=== PATIENT | female | born 1970 | race Caucasian/White ===

== ENCOUNTER 2017-10-26 13:02 | Inpatient (IN) | payer OTHER ==
[2017-10-26 13:44] LABS: ADD MAN DIFF? NO
[2017-10-26 13:47] LABS: BASOPHILS % 0.2 % (0.0-2.0); EOSINOPHILS # 0.1 10^3/ul (0.0-0.5); HEMATOCRIT 40.2 % (37.0-47.0); LYMPHOCYTES # 2.5 10^3/ul (0.8-2.9); LYMPHOCYTES % 28.2 % (15.0-51.0); MEAN CORPUSCULAR HEMOGLOBIN 25.5 pg (29.0-33.0); MEAN CORPUSCULAR HGB CONC 32.3 g/dl (32.0-37.0); MEAN CORPUSCULAR VOLUME 78.8 fl (82.0-101.0); MEAN PLATELET VOLUME 9.8 fl (7.4-10.4); MONOCYTE # 0.4 10^3/ul (0.3-0.9); MONOCYTES % 4.1 % (0.0-11.0); NEUTROPHIL # 5.9 10^3/ul (1.6-7.5); NEUTROPHILS % 66.2 % (39.0-77.0); PLATELET COUNT 393 10^3/UL (140-415); RED CELL DISTRIBUTION WIDTH 15.7 % (11.5-14.5)
[2017-10-26 13:47] LABS: WHITE BLOOD COUNT 8.9 10^3/ul (4.8-10.8)
[2017-10-26] MEDS ORDERED: ONDANSETRON 4 MG INJ IV ×2 (14:00→15:30)
[2017-10-26] MEDS ORDERED: ACETAMINOPHEN 325 MG TAB PO (14:00)
[2017-10-26 14:06] LABS: ANION GAP 18 (8-16); BLOOD UREA NITROGEN 12 mg/dl (7-20); CALCIUM 9.2 mg/dl (8.4-10.2); CARBON DIOXIDE 26 mmol/L (21-31); CHLORIDE 101 mmol/L (97-110); CREATININE 0.45 mg/dl (0.44-1.00); GLUCOSE 340 mg/dl (70-220); POTASSIUM 4.2 mmol/L (3.5-5.1); SODIUM 141 mmol/L (135-144)
[2017-10-26 14:16] LABS: INR 0.99; PROTIME 13.2 Sec (11.9-14.9)
[2017-10-26 14:20] LABS: TROPONIN-I < 0.012 ng/ml (0.00-0.12)
[2017-10-26 14:24] LABS: HEMOGLOBIN A1C 11.3 % (0-5.9)
[2017-10-26] MEDS: ASPIRIN 325 MG TAB PO (14:44)
[2017-10-26] MEDS ORDERED: GLUCOSE GEL 15 GRAM TUBE PO ×2 (15:30)
[2017-10-26] MEDS ORDERED: GLUCOSE GEL 15 GRAM TUBE BUCCAL (15:30)
[2017-10-26] MEDS ORDERED: DEXTROSE 50% 50 ML SYRINGE IV ×2 (15:30)
[2017-10-26] MEDS ORDERED: GLUCAGON 1 MG INJ IM (15:30)
[2017-10-26] MEDS: INSULIN ASPART [NOVOLOG] 3 ML PEN SC ×2 (16:26→18:00)
[2017-10-26] MEDS: SOD CHLORIDE 0.9% 1,000 ML IV (16:38)
[2017-10-26] MEDS ORDERED: INSULIN ASPART [NOVOLOG] 3 ML PEN SC (17:00)
[2017-10-26 21:09] LABS: ADD UMIC NO; UR ASCORBIC ACID NEGATIVE (NEGATIVE); UR BILIRUBIN (Dip) NEGATIVE (NEGATIVE); UR BLOOD (Dip) NEGATIVE (NEGATIVE); UR CLARITY CLEAR (CLEAR); UR COLOR YELLOW (YELLOW); UR GLUCOSE (Dip) 3+ mg/dL (NEGATIVE); UR KETONES (Dip) NEGATIVE (NEGATIVE); UR LEUKOCYTE ESTERASE (Dip) NEGATIVE Leu/ul (NEGATIVE); UR NITRITE (Dip) NEGATIVE (NEGATIVE); UR TOTAL PROTEIN (Dip) NEGATIVE (NEGATIVE); UR UROBILINOGEN (Dip) NEGATIVE (NEGATIVE)
[2017-10-26 21:58] LABS: AMPHETAMINE/METHAMPHETAMINE Negative (NEGATIVE); BARBITURATES Negative (NEGATIVE); BENZODIAZEPINES Negative (NEGATIVE); CANNABINOIDS Negative (NEGATIVE); COCAINE Negative (NEGATIVE); OPIATES Negative (NEGATIVE)
[2017-10-27] MEDS: INSULIN GLARGINE [LANtus] 3 ML PEN SC ×2 (00:34→21:12)
[2017-10-27] MEDS: INSULIN ASPART [NOVOLOG] 3 ML PEN SC ×6 (00:34→21:15)
[2017-10-27] MEDS: ACCU-CHEK XX (02:00)
[2017-10-27] MEDS: ACETAMINOPHEN 325 MG TAB PO ×4 (02:12→21:23)
[2017-10-27] MEDS: hydrALAzine 20 MG INJ IV (04:36)
[2017-10-27 06:49] LABS: ADD MAN DIFF? NO
[2017-10-27 06:52] LABS: BASOPHILS % 0.2 % (0.0-2.0); EOSINOPHILS # 0.1 10^3/ul (0.0-0.5); EOSINOPHILS % 1.3 % (0.0-7.0); HEMATOCRIT 36.6 % (37.0-47.0); HEMOGLOBIN 11.9 g/dl (12.0-16.0); LYMPHOCYTES # 2.6 10^3/ul (0.8-2.9); LYMPHOCYTES % 28.9 % (15.0-51.0); MEAN CORPUSCULAR HEMOGLOBIN 25.8 pg (29.0-33.0); MEAN CORPUSCULAR HGB CONC 32.5 g/dl (32.0-37.0); MEAN CORPUSCULAR VOLUME 79.2 fl (82.0-101.0); MEAN PLATELET VOLUME 9.9 fl (7.4-10.4); MONOCYTE # 0.4 10^3/ul (0.3-0.9); MONOCYTES % 4.2 % (0.0-11.0); NEUTROPHIL # 5.8 10^3/ul (1.6-7.5); NEUTROPHILS % 65.1 % (39.0-77.0); PLATELET COUNT 369 10^3/UL (140-415); RED BLOOD COUNT 4.62 10^6/ul (4.20-5.40)
[2017-10-27 06:52] LABS: WHITE BLOOD COUNT 8.9 10^3/ul (4.8-10.8)
[2017-10-27 07:27] LABS: ANION GAP 12 (8-16); BLOOD UREA NITROGEN 8 mg/dl (7-20); CALCIUM 8.3 mg/dl (8.4-10.2); CARBON DIOXIDE 25 mmol/L (21-31); CHLORIDE 106 mmol/L (97-110); GLUCOSE 188 mg/dl (70-220); POTASSIUM 3.8 mmol/L (3.5-5.1); SODIUM 139 mmol/L (135-144)
[2017-10-27] MEDS: SOD CHLORIDE 0.9% 1,000 ML IV (08:18)
[2017-10-27 08:26] LABS: HEMOGLOBIN A1C 10.7 % (0-5.9)
[2017-10-27] MEDS: ASPIRIN (EC) 81 MG TAB PO (14:28)
[2017-10-27 20:56] LABS: CHOLESTEROL 140 mg/dl (100-200)
[2017-10-27 20:56] LABS: CHOL/HDL RATIO 4.5 RATIO; HDL CHOLESTEROL 31 mg/dl (37-92); LDL CHOLESTEROL,CALCULATED 87 mg/dl; TRIGLYCERIDES 110 mg/dl (0-149)
[2017-10-28] MEDS: SOD CHLORIDE 0.9% 1,000 ML IV (01:36)
[2017-10-28] MEDS: ACCU-CHEK XX (02:00)
[2017-10-28] MEDS: ACETAMINOPHEN 325 MG TAB PO (07:49)
[2017-10-28] MEDS: ASPIRIN (EC) 81 MG TAB PO (08:20)
[2017-10-28 08:21] LABS: ADD MAN DIFF? NO
[2017-10-28] MEDS: INSULIN ASPART [NOVOLOG] 3 ML PEN SC ×7 (08:24→20:48)
[2017-10-28 08:25] LABS: WHITE BLOOD COUNT 9.7 10^3/ul (4.8-10.8)
[2017-10-28 08:25] LABS: BASOPHILS % 0.1 % (0.0-2.0); EOSINOPHILS # 0.1 10^3/ul (0.0-0.5); EOSINOPHILS % 1.2 % (0.0-7.0); HEMATOCRIT 36.9 % (37.0-47.0); LYMPHOCYTES # 2.5 10^3/ul (0.8-2.9); MEAN CORPUSCULAR HEMOGLOBIN 26.1 pg (29.0-33.0); MEAN CORPUSCULAR HGB CONC 32.5 g/dl (32.0-37.0); MEAN CORPUSCULAR VOLUME 80.4 fl (82.0-101.0); MEAN PLATELET VOLUME 10.2 fl (7.4-10.4); MONOCYTE # 0.5 10^3/ul (0.3-0.9); MONOCYTES % 5.2 % (0.0-11.0); NEUTROPHIL # 6.5 10^3/ul (1.6-7.5); NEUTROPHILS % 67.2 % (39.0-77.0); PLATELET COUNT 355 10^3/UL (140-415); RED BLOOD COUNT 4.59 10^6/ul (4.20-5.40); RED CELL DISTRIBUTION WIDTH 16.1 % (11.5-14.5)
[2017-10-28 08:49] LABS: ANION GAP 14 (8-16); BLOOD UREA NITROGEN 8 mg/dl (7-20); CALCIUM 8.5 mg/dl (8.4-10.2); CARBON DIOXIDE 25 mmol/L (21-31); CHLORIDE 106 mmol/L (97-110); CHOL/HDL RATIO 3.7 RATIO; CHOLESTEROL 126 mg/dl (100-200); CREATININE 0.41 mg/dl (0.44-1.00); GLUCOSE 178 mg/dl (70-220); HDL CHOLESTEROL 34 mg/dl (37-92); LDL CHOLESTEROL,CALCULATED 73 mg/dl; POTASSIUM 4.2 mmol/L (3.5-5.1); SODIUM 141 mmol/L (135-144); TRIGLYCERIDES 95 mg/dl (0-149)
[2017-10-28 19:53] LABS: RHEUMATOID FACTOR POSITIVE (NEGATIVE)
[2017-10-28 19:54] LABS: RHEUM FACTOR TITER 1:16
[2017-10-28] MEDS: hydrALAzine 20 MG INJ IV (20:39)
[2017-10-28] MEDS: INSULIN GLARGINE [LANtus] 3 ML PEN SC (20:48)
[2017-10-29] MEDS: ACETAMINOPHEN 325 MG TAB PO ×2 (00:14→12:15)
[2017-10-29] MEDS ORDERED: HYDROCODONE/APAP (5/325) TAB PO (00:30)
[2017-10-29] MEDS: ACCU-CHEK XX (02:40)
[2017-10-29 08:23] LABS: ADD MAN DIFF? NO
[2017-10-29 08:26] LABS: WHITE BLOOD COUNT 9.4 10^3/ul (4.8-10.8)
[2017-10-29 08:26] LABS: BASOPHILS % 0.2 % (0.0-2.0); EOSINOPHILS # 0.2 10^3/ul (0.0-0.5); EOSINOPHILS % 1.7 % (0.0-7.0); HEMATOCRIT 38.8 % (37.0-47.0); HEMOGLOBIN 12.5 g/dl (12.0-16.0); LYMPHOCYTES # 2.7 10^3/ul (0.8-2.9); LYMPHOCYTES % 28.4 % (15.0-51.0); MEAN CORPUSCULAR HEMOGLOBIN 25.9 pg (29.0-33.0); MEAN CORPUSCULAR HGB CONC 32.2 g/dl (32.0-37.0); MEAN CORPUSCULAR VOLUME 80.3 fl (82.0-101.0); MEAN PLATELET VOLUME 10.1 fl (7.4-10.4); MONOCYTE # 0.5 10^3/ul (0.3-0.9); MONOCYTES % 5.3 % (0.0-11.0); PLATELET COUNT 378 10^3/UL (140-415); RED BLOOD COUNT 4.83 10^6/ul (4.20-5.40); RED CELL DISTRIBUTION WIDTH 15.9 % (11.5-14.5)
[2017-10-29 08:48] LABS: ANION GAP 14 (8-16); BLOOD UREA NITROGEN 11 mg/dl (7-20); CALCIUM 9.2 mg/dl (8.4-10.2); CARBON DIOXIDE 25 mmol/L (21-31); CHLORIDE 104 mmol/L (97-110); CREATININE 0.41 mg/dl (0.44-1.00); GLUCOSE 163 mg/dl (70-220); SODIUM 139 mmol/L (135-144)
[2017-10-29] MEDS: ASPIRIN (EC) 81 MG TAB PO (08:54)
[2017-10-29] MEDS: INSULIN ASPART [NOVOLOG] 3 ML PEN SC ×4 (08:54→12:41)
[2017-10-29] MEDS ORDERED: ATORVASTATIN 80 MG TAB PO (21:00)
== END 2017-10-29 17:44 | DRG 65 ==
LOC: E/R 13:02 → TEL 13:49
DX: I63.9 Cerebral infarction, unspecified (principal); G81.91 Hemiplegia, unspecified affecting right dominant side; E11.65 Type 2 diabetes mellitus with hyperglycemia; M06.9 Rheumatoid arthritis, unspecified; Z91.14 Patient's other noncompliance with medication regimen; Z79.4 Long term (current) use of insulin
CPT/HCPCS: 36415; 70450; 70549; 70551; 71045; 80048; 80061; 80307; 81003; 82962; 83036; 84443; 84484; 85025; 85610; 85730; 86430; 86850; 86900; 86901; 92610; 93005; 97003; 97110; 97162; 97166; 97530; 99285-25

== ENCOUNTER 2017-10-29 18:01 | Inpatient (IN) | payer OTHER ==
[2017-10-29] MEDS ORDERED: GLUCAGON 1 MG INJ IM (19:30)
[2017-10-29] MEDS ORDERED: GLUCOSE GEL 15 GRAM TUBE BUCCAL (19:30)
[2017-10-29] MEDS ORDERED: DEXTROSE 50% 50 ML SYRINGE IV ×2 (19:30)
[2017-10-29] MEDS ORDERED: GLUCOSE GEL 15 GRAM TUBE PO ×2 (19:30)
[2017-10-29] MEDS: ACETAMINOPHEN 325 MG TAB PO (21:26)
[2017-10-29] MEDS: ATORVASTATIN 80 MG TAB PO (21:26)
[2017-10-29] MEDS: INSULIN GLARGINE [LANtus] 3 ML PEN SC (21:30)
[2017-10-29] MEDS: INSULIN ASPART [NOVOLOG] 3 ML PEN SC (21:31)
[2017-10-30] MEDS: ACCU-CHEK XX ×2 (02:00)
[2017-10-30] MEDS: HYDROCODONE/APAP (5/325) TAB PO ×2 (02:30→08:16)
[2017-10-30] MEDS ORDERED: MAGNESIUM HYDROXIDE 30ML CUP PO (04:00)
[2017-10-30] MEDS ORDERED: BISACODYL 10 MG SUPP PR (04:00)
[2017-10-30 07:16] LABS: ADD MAN DIFF? NO
[2017-10-30 07:21] LABS: BASOPHILS % 0.3 % (0.0-2.0); EOSINOPHILS # 0.2 10^3/ul (0.0-0.5); EOSINOPHILS % 2.7 % (0.0-7.0); HEMATOCRIT 39.7 % (37.0-47.0); HEMOGLOBIN 12.6 g/dl (12.0-16.0); LYMPHOCYTES # 3.1 10^3/ul (0.8-2.9); LYMPHOCYTES % 34.6 % (15.0-51.0); MEAN CORPUSCULAR HEMOGLOBIN 25.8 pg (29.0-33.0); MEAN CORPUSCULAR HGB CONC 31.7 g/dl (32.0-37.0); MEAN CORPUSCULAR VOLUME 81.2 fl (82.0-101.0); MEAN PLATELET VOLUME 9.9 fl (7.4-10.4); MONOCYTE # 0.5 10^3/ul (0.3-0.9); MONOCYTES % 5.8 % (0.0-11.0); NEUTROPHIL # 5.1 10^3/ul (1.6-7.5); NEUTROPHILS % 56.4 % (39.0-77.0); PLATELET COUNT 356 10^3/UL (140-415); RED BLOOD COUNT 4.89 10^6/ul (4.20-5.40); RED CELL DISTRIBUTION WIDTH 16.2 % (11.5-14.5)
[2017-10-30 07:44] LABS: ALANINE AMINOTRANSFERASE 42 IU/L (13-69); ALBUMIN 3.6 g/dl (3.3-4.9); ALKALINE PHOSPHATASE 138 IU/L (42-121); ANION GAP 15 (8-16); ASPARTATE AMINO TRANSFERASE 36 IU/L (15-46); BILIRUBIN,INDIRECT 0.3 mg/dl (0-1.1); BILIRUBIN,TOTAL 0.3 mg/dl (0.2-1.3); BLOOD UREA NITROGEN 13 mg/dl (7-20); CALCIUM 8.7 mg/dl (8.4-10.2); CARBON DIOXIDE 27 mmol/L (21-31); CHLORIDE 103 mmol/L (97-110); CREATININE 0.47 mg/dl (0.44-1.00); GLUCOSE 161 mg/dl (70-220); POTASSIUM 4.7 mmol/L (3.5-5.1); SODIUM 140 mmol/L (135-144); TOTAL PROTEIN 7.6 g/dl (6.1-8.1)
[2017-10-30] MEDS: INSULIN ASPART [NOVOLOG] 3 ML PEN SC ×7 (08:18→21:20)
[2017-10-30] MEDS: DOCUSATE SODIUM 100 MG CAP PO ×2 (09:32→21:13)
[2017-10-30] MEDS: ASPIRIN (EC) 81 MG TAB PO (09:32)
[2017-10-30 09:58] LABS: ADD UMIC YES; UR ASCORBIC ACID NEGATIVE (NEGATIVE); UR BACTERIA MODERATE /HPF (NONE SEEN); UR BILIRUBIN (Dip) NEGATIVE (NEGATIVE); UR BLOOD (Dip) NEGATIVE (NEGATIVE); UR CLARITY SLIGHTLY CLOUDY (CLEAR); UR COLOR YELLOW (YELLOW); UR GLUCOSE (Dip) NEGATIVE (NEGATIVE); UR KETONES (Dip) NEGATIVE (NEGATIVE); UR LEUKOCYTE ESTERASE (Dip) NEGATIVE Leu/ul (NEGATIVE); UR MUCUS FEW /HPF (NONE SEEN); UR NITRITE (Dip) POSITIVE (NEGATIVE); UR RBC 1 /HPF (0-5); UR SPECIFIC GRAVITY (Dip) 1.009 (1.003-1.030); UR SQUAMOUS EPITHELIAL CELL FEW /HPF (FEW); UR TOTAL PROTEIN (Dip) NEGATIVE (NEGATIVE); UR UROBILINOGEN (Dip) NEGATIVE (NEGATIVE); UR WBC 2 /HPF (0-5)
[2017-10-30] MEDS ORDERED: HYDROCODONE/APAP (5/325) TAB PO (11:00)
[2017-10-30] MEDS: ONDANSETRON 4 MG INJ IV (11:47)
[2017-10-30 16:02] LABS: C-REACTIVE PROTEIN 3.4 mg/dl (0.0-0.9)
[2017-10-30 17:19] LABS: ERYTHROCYTE SEDIMENTATION RATE 52 mm/Hr (0-20)
[2017-10-30] MEDS: SENNA TAB PO (21:00)
[2017-10-30] MEDS: ACETAMINOPHEN 325 MG TAB PO (21:12)
[2017-10-30] MEDS: GABAPENTIN 100 MG CAP PO (21:13)
[2017-10-30] MEDS: ATORVASTATIN 80 MG TAB PO (21:13)
[2017-10-30] MEDS: INSULIN GLARGINE [LANtus] 3 ML PEN SC (21:17)
[2017-10-31] MEDS: ACCU-CHEK XX (02:30)
[2017-10-31] MEDS: ACETAMINOPHEN 325 MG TAB PO ×3 (03:22→20:27)
[2017-10-31] MEDS: predniSONE 10 MG TAB PO (08:23)
[2017-10-31] MEDS: HYDROCODONE/APAP (5/325) TAB PO (08:23)
[2017-10-31] MEDS: INSULIN ASPART [NOVOLOG] 3 ML PEN SC ×7 (08:29→20:57)
[2017-10-31] MEDS: GABAPENTIN 100 MG CAP PO ×2 (09:38→20:27)
[2017-10-31] MEDS: ASPIRIN (EC) 81 MG TAB PO (09:38)
[2017-10-31] MEDS: DOCUSATE SODIUM 100 MG CAP PO ×2 (09:38→20:28)
[2017-10-31 19:21] LABS: CYCLIC CITRULLINATED PEP IGG >250 UNITS
[2017-10-31] MEDS: SENNA TAB PO (20:28)
[2017-10-31] MEDS: ATORVASTATIN 80 MG TAB PO (20:28)
[2017-10-31 21:32] LABS: ANA SCREEN POSITIVE (NEGATIVE)
[2017-10-31] MEDS: INSULIN GLARGINE [LANtus] 3 ML PEN SC (21:47)
[2017-10-31 22:17] LABS: ANA PATTERN NUCLEOLAR
[2017-11-01] MEDS: ACCU-CHEK XX (02:00)
[2017-11-01] MEDS: ACETAMINOPHEN 325 MG TAB PO (02:15)
[2017-11-01] MEDS: hydrALAzine 20 MG INJ IV (02:21)
[2017-11-01] MEDS: traMADol 50 MG TAB PO ×4 (06:47→20:55)
[2017-11-01] MEDS: INSULIN ASPART [NOVOLOG] 3 ML PEN SC ×7 (08:13→20:48)
[2017-11-01] MEDS: DOCUSATE SODIUM 100 MG CAP PO ×2 (09:25→20:47)
[2017-11-01] MEDS: ASPIRIN (EC) 81 MG TAB PO (09:25)
[2017-11-01] MEDS: predniSONE 10 MG TAB PO (09:25)
[2017-11-01] MEDS: GABAPENTIN 100 MG CAP PO ×2 (14:05→22:10)
[2017-11-01] MEDS: ATORVASTATIN 80 MG TAB PO (20:46)
[2017-11-01] MEDS: SENNA TAB PO (20:46)
[2017-11-01] MEDS: INSULIN GLARGINE [LANtus] 3 ML PEN SC (20:48)
[2017-11-02] MEDS: ACCU-CHEK XX (02:00)
[2017-11-02] MEDS: traMADol 50 MG TAB PO ×3 (03:11→22:06)
[2017-11-02] MEDS: GABAPENTIN 100 MG CAP PO ×3 (06:39→20:29)
[2017-11-02] MEDS: INSULIN ASPART [NOVOLOG] 3 ML PEN SC ×7 (07:35→20:28)
[2017-11-02] MEDS: predniSONE 10 MG TAB PO (07:59)
[2017-11-02] MEDS: ASPIRIN (EC) 81 MG TAB PO (08:40)
[2017-11-02] MEDS: DOCUSATE SODIUM 100 MG CAP PO ×2 (08:40→20:29)
[2017-11-02] MEDS: ATORVASTATIN 80 MG TAB PO (20:29)
[2017-11-02] MEDS: SENNA TAB PO (20:29)
[2017-11-02] MEDS: INSULIN GLARGINE [LANtus] 3 ML PEN SC (20:33)
[2017-11-03] MEDS: ACCU-CHEK XX (01:52)
[2017-11-03] MEDS: GABAPENTIN 100 MG CAP PO ×3 (06:43→21:01)
[2017-11-03] MEDS: INSULIN ASPART [NOVOLOG] 3 ML PEN SC ×7 (08:58→20:55)
[2017-11-03] MEDS: DOCUSATE SODIUM 100 MG CAP PO ×2 (10:30→20:52)
[2017-11-03] MEDS: ASPIRIN (EC) 81 MG TAB PO (10:31)
[2017-11-03] MEDS: predniSONE 10 MG TAB PO (10:31)
[2017-11-03] MEDS: traMADol 50 MG TAB PO ×2 (14:25→21:38)
[2017-11-03] MEDS: ATORVASTATIN 80 MG TAB PO (20:52)
[2017-11-03] MEDS: SENNA TAB PO (20:52)
[2017-11-03] MEDS: INSULIN GLARGINE [LANtus] 3 ML PEN SC (20:54)
[2017-11-04] MEDS: ACCU-CHEK XX (02:00)
[2017-11-04] MEDS: GABAPENTIN 100 MG CAP PO ×3 (06:10→22:09)
[2017-11-04] MEDS: INSULIN ASPART [NOVOLOG] 3 ML PEN SC ×7 (07:35→20:46)
[2017-11-04] MEDS: predniSONE 10 MG TAB PO (08:04)
[2017-11-04] MEDS: DOCUSATE SODIUM 100 MG CAP PO ×2 (09:20→20:44)
[2017-11-04] MEDS: ASPIRIN (EC) 81 MG TAB PO (09:20)
[2017-11-04] MEDS: traMADol 50 MG TAB PO ×2 (09:31→22:09)
[2017-11-04] MEDS: ATORVASTATIN 80 MG TAB PO (20:45)
[2017-11-04] MEDS: INSULIN GLARGINE [LANtus] 3 ML PEN SC (20:47)
[2017-11-04] MEDS: SENNA TAB PO (21:00)
[2017-11-05] MEDS: ACCU-CHEK XX (02:24)
[2017-11-05] MEDS: GABAPENTIN 100 MG CAP PO ×3 (05:58→20:34)
[2017-11-05] MEDS: INSULIN ASPART [NOVOLOG] 3 ML PEN SC ×7 (07:35→20:38)
[2017-11-05] MEDS: traMADol 50 MG TAB PO ×2 (08:25→22:05)
[2017-11-05] MEDS: DOCUSATE SODIUM 100 MG CAP PO ×2 (08:25→20:40)
[2017-11-05] MEDS: predniSONE 10 MG TAB PO (08:25)
[2017-11-05] MEDS: LACTULOSE 30ML CUP PO (08:26)
[2017-11-05] MEDS: ASPIRIN (EC) 81 MG TAB PO (08:26)
[2017-11-05] MEDS: NITROFURANTOIN (SR) 100 MG CAP PO (20:34)
[2017-11-05] MEDS: ATORVASTATIN 80 MG TAB PO (20:34)
[2017-11-05] MEDS: INSULIN GLARGINE [LANtus] 3 ML PEN SC (20:39)
[2017-11-05] MEDS: SENNA TAB PO (20:40)
[2017-11-06] MEDS: ACCU-CHEK XX (02:16)
[2017-11-06] MEDS: GABAPENTIN 100 MG CAP PO ×3 (06:07→21:56)
[2017-11-06] MEDS: INSULIN ASPART [NOVOLOG] 3 ML PEN SC ×7 (07:35→21:00)
[2017-11-06] MEDS: predniSONE 10 MG TAB PO (09:14)
[2017-11-06] MEDS: DOCUSATE SODIUM 100 MG CAP PO ×2 (09:14→21:00)
[2017-11-06] MEDS: traMADol 50 MG TAB PO ×2 (09:14→21:56)
[2017-11-06] MEDS: NITROFURANTOIN (SR) 100 MG CAP PO ×2 (09:15→21:56)
[2017-11-06] MEDS: ASPIRIN (EC) 81 MG TAB PO (09:15)
[2017-11-06] MEDS: SENNA TAB PO (21:00)
[2017-11-06] MEDS: ATORVASTATIN 80 MG TAB PO (21:56)
[2017-11-06] MEDS: INSULIN GLARGINE [LANtus] 3 ML PEN SC (21:59)
[2017-11-07] MEDS: ACCU-CHEK XX (01:50)
[2017-11-07] MEDS: GABAPENTIN 100 MG CAP PO ×3 (06:29→21:54)
[2017-11-07] MEDS: INSULIN ASPART [NOVOLOG] 3 ML PEN SC ×7 (07:35→21:00)
[2017-11-07] MEDS: NITROFURANTOIN (SR) 100 MG CAP PO ×2 (08:34→21:16)
[2017-11-07] MEDS: predniSONE 10 MG TAB PO (08:35)
[2017-11-07] MEDS: DOCUSATE SODIUM 100 MG CAP PO ×2 (08:35→21:00)
[2017-11-07] MEDS: ASPIRIN (EC) 81 MG TAB PO (08:35)
[2017-11-07] MEDS: SENNA TAB PO (21:00)
[2017-11-07] MEDS: ATORVASTATIN 80 MG TAB PO (21:16)
[2017-11-07] MEDS: INSULIN GLARGINE [LANtus] 3 ML PEN SC (21:20)
[2017-11-07] MEDS: traMADol 50 MG TAB PO (21:21)
[2017-11-08] MEDS: ACCU-CHEK XX (01:59)
[2017-11-08] MEDS: GABAPENTIN 100 MG CAP PO ×3 (06:49→21:02)
[2017-11-08] MEDS: INSULIN ASPART [NOVOLOG] 3 ML PEN SC ×7 (07:35→21:00)
[2017-11-08] MEDS: predniSONE 10 MG TAB PO (07:59)
[2017-11-08] MEDS: DOCUSATE SODIUM 100 MG CAP PO ×2 (08:52→20:57)
[2017-11-08] MEDS: NITROFURANTOIN (SR) 100 MG CAP PO ×2 (08:52→20:57)
[2017-11-08] MEDS: ASPIRIN (EC) 81 MG TAB PO (08:52)
[2017-11-08] MEDS: ATORVASTATIN 80 MG TAB PO (20:57)
[2017-11-08] MEDS: SENNA TAB PO (20:57)
[2017-11-08] MEDS: traMADol 50 MG TAB PO (20:58)
[2017-11-08] MEDS: INSULIN GLARGINE [LANtus] 3 ML PEN SC (21:01)
[2017-11-09] MEDS: ACCU-CHEK XX (02:31)
[2017-11-09] MEDS: GABAPENTIN 100 MG CAP PO ×3 (05:41→21:33)
[2017-11-09] MEDS: INSULIN ASPART [NOVOLOG] 3 ML PEN SC ×7 (07:35→21:40)
[2017-11-09] MEDS: predniSONE 10 MG TAB PO (08:52)
[2017-11-09] MEDS: DOCUSATE SODIUM 100 MG CAP PO ×3 (08:52→21:00)
[2017-11-09] MEDS: ASPIRIN (EC) 81 MG TAB PO (08:52)
[2017-11-09] MEDS: NITROFURANTOIN (SR) 100 MG CAP PO ×2 (08:52→21:34)
[2017-11-09] MEDS: SENNA TAB PO (21:00)
[2017-11-09] MEDS: ATORVASTATIN 80 MG TAB PO (21:34)
[2017-11-09] MEDS: traMADol 50 MG TAB PO (21:34)
[2017-11-09] MEDS: INSULIN GLARGINE [LANtus] 3 ML PEN SC (21:39)
[2017-11-10] MEDS: ACCU-CHEK XX (02:00)
[2017-11-10] MEDS: GABAPENTIN 100 MG CAP PO ×3 (06:10→21:50)
[2017-11-10] MEDS: INSULIN ASPART [NOVOLOG] 3 ML PEN SC ×7 (07:35→20:18)
[2017-11-10] MEDS: predniSONE 10 MG TAB PO (08:04)
[2017-11-10] MEDS: DOCUSATE SODIUM 100 MG CAP PO ×2 (08:36→21:00)
[2017-11-10] MEDS: NITROFURANTOIN (SR) 100 MG CAP PO ×2 (08:36→20:07)
[2017-11-10] MEDS: ASPIRIN (EC) 81 MG TAB PO (08:37)
[2017-11-10] MEDS: ATORVASTATIN 80 MG TAB PO (20:07)
[2017-11-10] MEDS: traMADol 50 MG TAB PO (20:08)
[2017-11-10] MEDS: INSULIN GLARGINE [LANtus] 3 ML PEN SC (20:22)
[2017-11-10] MEDS: SENNA TAB PO (21:00)
[2017-11-11] MEDS: ACCU-CHEK XX (02:45)
[2017-11-11] MEDS: GABAPENTIN 100 MG CAP PO ×3 (05:58→22:00)
[2017-11-11] MEDS: INSULIN ASPART [NOVOLOG] 3 ML PEN SC ×7 (07:35→20:19)
[2017-11-11] MEDS: ASPIRIN (EC) 81 MG TAB PO (08:13)
[2017-11-11] MEDS: DOCUSATE SODIUM 100 MG CAP PO ×2 (08:13→21:00)
[2017-11-11] MEDS: traMADol 50 MG TAB PO ×2 (08:13→20:08)
[2017-11-11] MEDS: predniSONE 10 MG TAB PO (08:13)
[2017-11-11] MEDS: NITROFURANTOIN (SR) 100 MG CAP PO ×2 (08:13→20:07)
[2017-11-11] MEDS: ATORVASTATIN 80 MG TAB PO (20:07)
[2017-11-11] MEDS: INSULIN GLARGINE [LANtus] 3 ML PEN SC (20:18)
[2017-11-11] MEDS: SENNA TAB PO (21:00)
[2017-11-12] MEDS: ACCU-CHEK XX (02:00)
[2017-11-12] MEDS: GABAPENTIN 100 MG CAP PO ×3 (06:16→22:27)
[2017-11-12] MEDS: INSULIN ASPART [NOVOLOG] 3 ML PEN SC ×7 (07:35→20:42)
[2017-11-12] MEDS: predniSONE 10 MG TAB PO (09:18)
[2017-11-12] MEDS: ASPIRIN (EC) 81 MG TAB PO (09:18)
[2017-11-12] MEDS: DOCUSATE SODIUM 100 MG CAP PO ×2 (09:18→20:38)
[2017-11-12] MEDS: traMADol 50 MG TAB PO ×2 (09:18→20:37)
[2017-11-12] MEDS: NITROFURANTOIN (SR) 100 MG CAP PO ×2 (09:18→20:37)
[2017-11-12] MEDS: ATORVASTATIN 80 MG TAB PO (20:37)
[2017-11-12] MEDS: SENNA TAB PO (20:38)
[2017-11-12] MEDS: INSULIN GLARGINE [LANtus] 3 ML PEN SC (20:42)
[2017-11-13] MEDS: ACCU-CHEK XX (02:20)
[2017-11-13] MEDS: GABAPENTIN 100 MG CAP PO ×3 (06:40→22:16)
[2017-11-13] MEDS: INSULIN ASPART [NOVOLOG] 3 ML PEN SC ×7 (07:35→20:38)
[2017-11-13] MEDS: predniSONE 10 MG TAB PO (08:25)
[2017-11-13] MEDS: traMADol 50 MG TAB PO ×2 (08:40→20:28)
[2017-11-13] MEDS: NITROFURANTOIN (SR) 100 MG CAP PO ×2 (08:41→20:27)
[2017-11-13] MEDS: ASPIRIN (EC) 81 MG TAB PO (08:41)
[2017-11-13] MEDS: DOCUSATE SODIUM 100 MG CAP PO ×2 (08:41→20:39)
[2017-11-13] MEDS: ATORVASTATIN 80 MG TAB PO (20:27)
[2017-11-13] MEDS: INSULIN GLARGINE [LANtus] 3 ML PEN SC (20:37)
[2017-11-13] MEDS: SENNA TAB PO (20:39)
[2017-11-14] MEDS: ACCU-CHEK XX (02:50)
[2017-11-14] MEDS: traMADol 50 MG TAB PO ×3 (05:04→20:52)
[2017-11-14] MEDS: GABAPENTIN 100 MG CAP PO ×3 (06:10→22:52)
[2017-11-14] MEDS: INSULIN ASPART [NOVOLOG] 3 ML PEN SC ×7 (07:35→20:57)
[2017-11-14] MEDS: predniSONE 10 MG TAB PO (08:17)
[2017-11-14] MEDS: DOCUSATE SODIUM 100 MG CAP PO ×2 (08:32→20:52)
[2017-11-14] MEDS: NITROFURANTOIN (SR) 100 MG CAP PO ×2 (08:32→20:51)
[2017-11-14] MEDS: ASPIRIN (EC) 81 MG TAB PO (08:32)
[2017-11-14] MEDS: ATORVASTATIN 80 MG TAB PO (20:52)
[2017-11-14] MEDS: SENNA TAB PO (20:52)
[2017-11-14] MEDS: INSULIN GLARGINE [LANtus] 3 ML PEN SC (20:57)
[2017-11-15] MEDS: ACCU-CHEK XX (02:00)
[2017-11-15] MEDS: traMADol 50 MG TAB PO ×3 (04:45→20:53)
[2017-11-15] MEDS: GABAPENTIN 100 MG CAP PO ×3 (06:41→21:45)
[2017-11-15] MEDS: INSULIN ASPART [NOVOLOG] 3 ML PEN SC ×7 (07:35→20:44)
[2017-11-15] MEDS: NITROFURANTOIN (SR) 100 MG CAP PO (08:18)
[2017-11-15] MEDS: DOCUSATE SODIUM 100 MG CAP PO ×2 (08:18→20:56)
[2017-11-15] MEDS: ASPIRIN (EC) 81 MG TAB PO (08:18)
[2017-11-15] MEDS: predniSONE 10 MG TAB PO (08:19)
[2017-11-15] MEDS: INSULIN GLARGINE [LANtus] 3 ML PEN SC (20:45)
[2017-11-15] MEDS: ATORVASTATIN 80 MG TAB PO (20:46)
[2017-11-15] MEDS: SENNA TAB PO (20:56)
[2017-11-16] MEDS: ACCU-CHEK XX (02:22)
[2017-11-16] MEDS: traMADol 50 MG TAB PO ×3 (03:42→20:53)
[2017-11-16] MEDS: GABAPENTIN 100 MG CAP PO ×3 (05:44→22:04)
[2017-11-16] MEDS: INSULIN ASPART [NOVOLOG] 3 ML PEN SC ×7 (07:35→21:00)
[2017-11-16] MEDS: DOCUSATE SODIUM 100 MG CAP PO ×2 (09:10→20:53)
[2017-11-16] MEDS: predniSONE 10 MG TAB PO (09:10)
[2017-11-16] MEDS: ASPIRIN (EC) 81 MG TAB PO (09:11)
[2017-11-16] MEDS: ATORVASTATIN 80 MG TAB PO (20:53)
[2017-11-16] MEDS: SENNA TAB PO (20:53)
[2017-11-16] MEDS: INSULIN GLARGINE [LANtus] 3 ML PEN SC (20:59)
[2017-11-17] MEDS: ACCU-CHEK XX (02:15)
[2017-11-17] MEDS: traMADol 50 MG TAB PO ×3 (04:13→21:19)
[2017-11-17] MEDS: GABAPENTIN 100 MG CAP PO ×3 (06:27→21:28)
[2017-11-17] MEDS: INSULIN ASPART [NOVOLOG] 3 ML PEN SC ×7 (07:35→21:25)
[2017-11-17] MEDS: predniSONE 10 MG TAB PO (09:06)
[2017-11-17] MEDS: ASPIRIN (EC) 81 MG TAB PO (09:06)
[2017-11-17] MEDS: DOCUSATE SODIUM 100 MG CAP PO ×2 (09:06→21:00)
[2017-11-17] MEDS: SENNA TAB PO (21:00)
[2017-11-17] MEDS: ATORVASTATIN 80 MG TAB PO (21:19)
[2017-11-17] MEDS: INSULIN GLARGINE [LANtus] 3 ML PEN SC (21:23)
[2017-11-18] MEDS: ACCU-CHEK XX (02:00)
[2017-11-18] MEDS: GABAPENTIN 100 MG CAP PO ×2 (05:58→14:30)
[2017-11-18] MEDS: traMADol 50 MG TAB PO ×2 (05:59→12:45)
[2017-11-18] MEDS: INSULIN ASPART [NOVOLOG] 3 ML PEN SC ×4 (07:35→12:34)
[2017-11-18] MEDS: predniSONE 10 MG TAB PO (07:57)
[2017-11-18] MEDS: DOCUSATE SODIUM 100 MG CAP PO (09:18)
[2017-11-18] MEDS: ASPIRIN (EC) 81 MG TAB PO (09:18)
== END 2017-11-18 14:40 | disposition home health service (06) | DRG 57 ==
LOC: VRC 18:01
PROVIDERS: Physical Medicine & Rehabilitation
DX: I69.351 Hemiplegia and hemiparesis following cerebral infarction affecting right dominant side (principal); E11.65 Type 2 diabetes mellitus with hyperglycemia; I10 Essential (primary) hypertension; M06.80 Other specified rheumatoid arthritis, unspecified site; R13.10 Dysphagia, unspecified; Z91.14 Patient's other noncompliance with medication regimen; Z79.82 Long term (current) use of aspirin; Z79.4 Long term (current) use of insulin
CPT/HCPCS: 80053; 81001; 82962; 85025; 85651; 86038; 86140; 86200; 87081; 87086; 92523; 92610; 97110; 97112; 97116; 97150; 97163; 97167; 97530; 97535; 97542